=== PATIENT | male | born 1955 | race Caucasian/White ===

== ENCOUNTER 2023-08-22 02:51 | Emergency (ER) | payer MEDICARE ==
[~2023-08-22] VITALS: Ht 180.3 cm; Wt 81.7 kg
[~2023-08-22 02:51] MED LIST: INSULANI; LEVO750 PO; TAMS.4ER PO
[2023-08-22 02:56] VITALS: BP 157/77
== END 2023-08-22 04:00 | disposition home or self-care (01) ==
LOC: ER 02:51
DX: S96.912A Strain of unspecified muscle and tendon at ankle and foot level, left foot, initial encounter (principal); S96.911A Strain of unspecified muscle and tendon at ankle and foot level, right foot, initial encounter; X58.XXXA Exposure to other specified factors, initial encounter; Z88.0 Allergy status to penicillin; Z88.1 Allergy status to other antibiotic agents; E11.9 Type 2 diabetes mellitus without complications
CPT/HCPCS: 99282

== ENCOUNTER 2023-08-24 00:52 | Emergency (ER) | payer MEDICARE ==
[~2023-08-24] VITALS: Ht 177.8 cm; Wt 88.9 kg
[2023-08-24 01:08] VITALS: BP 146/78
== END 2023-08-24 01:48 | disposition home or self-care (01) ==
LOC: ER 00:52
DX: M79.671 Pain in right foot (principal); E11.9 Type 2 diabetes mellitus without complications; Z88.1 Allergy status to other antibiotic agents; Z88.0 Allergy status to penicillin
CPT/HCPCS: 82947; 99284

== ENCOUNTER 2024-02-17 16:42 | Observation (INO) | payer MEDICARE ==
[~2024-02-17] VITALS: Ht 177.8 cm; Wt 79.4 kg
[2024-02-17 18:21] LABS: BASOPHILS ABSOLUTE AUTO 0.03 K/mm3 (0.00-0.23); BASOPHILS PERCENT AUTO 1 % (0-2); EOSINOPHILS ABSOLUTE AUTO 0.06 K/mm3 (0.00-0.68); EOSINOPHILS PERCENT AUTO 1 % (0-6); Hematocrit 41.1 % (37.0-53.0); Hemoglobin 14.6 g/dL (13.5-17.5); IMMATURE GRAN ABSOLUTE AUTO 0.01 K/mm3 (0.00-0.10); IMMATURE GRAN PERCENT AUTO 0 % (0-1); LYMPHOCYTES ABSOLUTE AUTO 1.39 K/mm3 (0.84-5.20); LYMPHOCYTES PERCENT AUTO 25 % (21-46); MONOCYTES PERCENT AUTO 9 % (4-13); Mean Corpuscular HGB Conc 35.5 g/dL (31.5-36.5); Mean Corpuscular Volume 90 fL (80-100); NEUTROPHILS ABSOLUTE AUTO 3.62 K/mm3 (1.96-9.15); NEUTROPHILS PERCENT AUTO 65 % (41-73); Platelet Count 227 K/mm3 (150-400); RDW Coefficient Variation 11.8 % (11.7-14.2); RDW Standard Deviation 38.6 fL (35.1-46.3); Red Blood Cell Count 4.56 M/mm3 (4.30-5.90); White Blood Cell Count 5.61 K/mm3 (4.00-11.30)
[2024-02-17 18:48] LABS: Albumin, Blood 3.6 g/dL (3.4-5.0); Albumin/Globulin Ratio 1.1 (0.8-1.8); Bilirubin, Total 1.9 mg/dL (0.1-1.0); Calcium, Blood 8.5 mg/dL (8.5-10.1); Globulin, Blood 3.3 g/dL (2.2-4.0); Total Protein, Blood 6.9 g/dL (6.4-8.2)
[2024-02-17 21:26] LABS: Source, Urine Clean Catch
[2024-02-17 21:31] LABS: Appearance, Urine Clear (Clear); Bilirubin, Urine Neg (Neg); Blood, Urine Neg (Neg); Color, Urine Yellow (P-Yellow); Glucose Qualitative, Urine Neg (Neg); Ketones, Urine Neg (Neg); Leukocyte Esterase, Urine Neg (Neg); Nitrite, Urine Neg (Neg); Protein, Urine Neg (Neg); Specific Gravity, Urine 1.025 (1.003-1.022); Urobilinogen, Urine NORM (Normal)
[2024-02-18] MEDS ORDERED: TAMSULOSIN HCL0.4 M1 PO (00:28)
[2024-02-18 00:36] LABS: U Amphetamine Screen Not Detected; U Barbituate Screen Not Detected; U Benzodiazapine Screen Not Detected; U Buprenorphine Screen Not Detected; U Cannabinoids Screen Not Detected; U Cocaine Screen Not Detected; U Methadone Screen Not Detected; U Methamphetamine Screen Not Detected; U Opiates Screen Not Detected; U Oxycodone Screen Not Detected; U Phencyclidine Screen Not Detected
[2024-02-18] MEDS ORDERED: TraZODone HCl 50 MG Tab PO ONE (13:25)
[2024-02-18] MEDS ORDERED: Tamsulosin HCl 0.4 MG Cap PO ONE (15:05)
[2024-02-18 16:19] VITALS: BP 128/81
[2024-02-18] MEDS ORDERED: TraZODone HCl 50 MG Tab PO SCH (21:00)
== END 2024-02-18 15:54 | disposition other institution (70) ==
LOC: ER 16:42 → EOR 16:43
PROVIDERS: Physician Assistant; ADMIT Emergency Medicine
DX: F33.2 Major depressive disorder, recurrent severe without psychotic features (principal); R45.851 Suicidal ideations; K59.00 Constipation, unspecified; E11.9 Type 2 diabetes mellitus without complications; N40.0 Benign prostatic hyperplasia without lower urinary tract symptoms; Z88.0 Allergy status to penicillin; Z88.1 Allergy status to other antibiotic agents
CPT/HCPCS: 80053; 81003; 82947; 85025; 93005; 93010; 99285-25; A9270; G0378

== ENCOUNTER 2024-02-18 15:29 | Inpatient (IN) | payer MEDICARE ==
[~2024-02-18 15:29] MED LIST changes: +TAMSULOSIN HCL0.4 M1 PO
[2024-02-18] MEDS ORDERED: Ondansetron 4 MG SoluTab MM PRN (15:55)
[2024-02-18] MEDS ORDERED: HydrOXYzine Pamoate 50 MG Cap PO PRN (15:55)
[2024-02-18] MEDS ORDERED: LORazepam 2 MG Tab PO PRN (15:55)
[2024-02-18] MEDS ORDERED: Polyethylene Glycol 3350 17 gm PO PRN (15:55)
[2024-02-18] MEDS ORDERED: TraZODone HCl 50 MG Tab PO PRN (15:55)
[2024-02-18] MEDS ORDERED: OLANZapine ODT 10 MG Tab MM PRN (15:55)
[2024-02-18] MEDS ORDERED: Ibuprofen 600 MG Tab PO PRN (15:55)
[2024-02-18] MEDS ORDERED: Calcium Carbonate 500 MG Tab Chew PO PRN (16:00)
[2024-02-18] MEDS ORDERED: Melatonin 3 MG Tab PO PRN (16:00)
[2024-02-18] MEDS ORDERED: DiphenhydrAMINE HCl 50 MG/ML 1ML Vial IV PRN (16:00)
[2024-02-18] MEDS ORDERED: Aluminum Hydroxide 320MG/5ML 473 ML PO PRN (16:00)
[2024-02-18] MEDS ORDERED: Acetaminophen 325 MG TABLET PO PRN (16:00)
[2024-02-18] MEDS ORDERED: FLU VACC TS2024-25(6MOS UP)/PF 45 MCG/0.5 ML SYRINGE IM SCH (16:00)
[2024-02-18] MEDS ORDERED: DiphenhydrAMINE HCl 50 MG Cap PO PRN (16:00)
--- NOTE | 2024-02-18 16:40 | NUR ---
PATIENT BELONGINGS STORED
[2024-02-18 21:14] VITALS: BP 136/75
--- NOTE | 2024-02-19 04:09 | NUR ---
SHIFT SUMMARY PT WAS ADMITTED TO [facility] . HE IS PLEASANT, ALERT & ORIENTED AND COOPERATIVE WITH CARE. PT HAS DENIED ANY SI, HI OR HALLUCINATIONS. HE HAD EVENING SNACK AND THEN WATCHED TV FOR A SHORT AMOUNT OF TIME. PT HAD NO SCHEDULED MEDICATIONS DURING MY SHIFT. HE WAS INFORMED OF PRN MEDICATIONS AVAILABLE BUT HAS NOT ASKED FOR ANY MEDICATIONS. PT WENT TO HIS ROOM AROUND 2114 LAST NIGHT AND HAS APPEARED TO BE SLEEPING COMFORTABLY THROUGHOUT THE NIGHT. Q15 MINUTE CHECKS TO CONTINUE PER UNIT PROTOCOL.
[2024-02-19 08:13] VITALS: BP 146/78
[2024-02-19] MEDS ORDERED: Multivitamins 1 Tab PO SCH (09:00)
[2024-02-19] MEDS ORDERED: Tamsulosin HCl 0.4 MG Cap PO SCH (09:00)
[2024-02-19] MEDS ORDERED: TraZODone HCl 50 MG Tab PO SCH ×2 (09:00→21:00)
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
[2024-02-19] MEDS ORDERED: TraZODone HCl 100 MG Tab PO SCH (21:00)
[2024-02-19 23:31] VITALS: BP 152/75
--- NOTE | 2024-02-20 03:08 | NUR ---
SHIFT SUMMARY PT HAS BEEN ALERT AND ORIENTED, PLEASANT AND COOPERATIVE WITH CARE. HE DENIES ANY SI, HI, OR HALLUCINATIONS. DISCUSSION HAD WITH THE PATIENT AT THE BEGINNING OF MY SHIFT REGARDING THE PT FEELING FRUSTRATED WITH HIMSELF REGARDING "BAD DECISIONS". PT SPOKE ABOUT HIS CHURCH BELIEFS AND THAT HE WOULD LIKE TO HAVE A CLOSER RELATIONSHIP WITH GOD. PT STATED THAT HE FEELS READY TO GO HOME. PT HAD EVENING SNACK AND WATCHED TV IN GROUP ROOM WITH [employer]ERS. HE WAS COMPLIANT WITH HIS MEDICATIONS AND HAS APPEARED TO BE SLEEPING THROUGHOUT THE NIGHT, WITH RESPIRATIONS EVEN AND UNLABORED. Q15 MINUTE CHECKS TO CONTINUE PER UNIT PROTOCOL.
[2024-02-20] MEDS ORDERED: TRAZ100 PO (14:14)
== END 2024-02-20 15:37 | disposition home or self-care (01) | DRG 882 ==
LOC: BHU 15:29
PROVIDERS: ADMIT Psychiatry & Neurology Psychiatry
DX: F43.20 Adjustment disorder, unspecified (principal); R45.851 Suicidal ideations; F32.A Depression, unspecified; Z79.899 Other long term (current) drug therapy; Z98.890 Other specified postprocedural states; G47.00 Insomnia, unspecified; Z88.0 Allergy status to penicillin; Z88.1 Allergy status to other antibiotic agents; H93.13 Tinnitus, bilateral; N40.0 Benign prostatic hyperplasia without lower urinary tract symptoms; E11.9 Type 2 diabetes mellitus without complications; K76.0 Fatty (change of) liver, not elsewhere classified; Z87.19 Personal history of other diseases of the digestive system
CPT/HCPCS: A9270

== ENCOUNTER 2024-02-29 11:37 | Observation (INO) | payer OTHER ==
[~2024-02-29] VITALS: Ht 177.8 cm; Wt 79.4 kg
[~2024-02-29 11:37] MED LIST changes: +TRAZ100 PO
[2024-02-29] MEDS ORDERED: NS 1,000 ML IV SCH (12:05)
[2024-02-29 12:17] LABS: BASOPHILS ABSOLUTE AUTO 0.06 K/mm3 (0.00-0.23); BASOPHILS PERCENT AUTO 1 % (0-2); EOSINOPHILS ABSOLUTE AUTO 0.12 K/mm3 (0.00-0.68); EOSINOPHILS PERCENT AUTO 1 % (0-6); Hematocrit 43.4 % (37.0-53.0); Hemoglobin 14.5 g/dL (13.5-17.5); IMMATURE GRAN ABSOLUTE AUTO 0.04 K/mm3 (0.00-0.10); IMMATURE GRAN PERCENT AUTO 0 % (0-1); LYMPHOCYTES ABSOLUTE AUTO 3.88 K/mm3 (0.84-5.20); LYMPHOCYTES PERCENT AUTO 35 % (21-46); MONOCYTES ABSOLUTE AUTO 1.03 K/mm3 (0.16-1.47); MONOCYTES PERCENT AUTO 9 % (4-13); Mean Corpuscular HGB 31.7 pg (26.0-34.0); Mean Corpuscular HGB Conc 33.4 g/dL (31.5-36.5); Mean Corpuscular Volume 95 fL (80-100); Mean Platelet Volume 9.7 fL (9.1-12.4); NEUTROPHILS ABSOLUTE AUTO 6.04 K/mm3 (1.96-9.15); NEUTROPHILS PERCENT AUTO 54 % (41-73); Platelet Count 314 K/mm3 (150-400); RDW Coefficient Variation 11.5 % (11.7-14.2); RDW Standard Deviation 39.7 fL (35.1-46.3); Red Blood Cell Count 4.57 M/mm3 (4.30-5.90); White Blood Cell Count 11.17 K/mm3 (4.00-11.30)
[2024-02-29 12:34] LABS: Albumin, Blood 3.7 g/dL (3.4-5.0); Albumin/Globulin Ratio 1.2 (0.8-1.8); Bilirubin, Total 2.2 mg/dL (0.1-1.0); Bun/Creatinine Ratio 13.9 (12.0-20.0); Calcium, Blood 8.7 mg/dL (8.5-10.1); Creatinine, Blood 1.15 mg/dL (0.60-1.20); Globulin, Blood 3.1 g/dL (2.2-4.0); Potassium, Blood 3.7 mmol/L (3.5-5.5); Total Protein, Blood 6.8 g/dL (6.4-8.2)
[2024-02-29] MEDS ORDERED: Diltiazem HCl 5 MG / ML 5ML Vial IV ONE (12:35)
[2024-02-29] MEDS ORDERED: Ondansetron HCl 2 MG / ML 2ML Vial IV ONE (12:50)
[2024-02-29] MEDS ORDERED: FLU VACC TS2024-25(6MOS UP)/PF 45 MCG/0.5 ML SYRINGE IM PRN (15:15)
[2024-02-29 15:25] LABS: Source, Urine Clean Catch
[2024-02-29 15:31] LABS: Appearance, Urine Clear (Clear); Bilirubin, Urine Neg (Neg); Blood, Urine 1+ (Neg); Color, Urine Yellow (P-Yellow); Glucose Qualitative, Urine Neg (Neg); Ketones, Urine 1+ (Neg); Leukocyte Esterase, Urine Neg (Neg); Nitrite, Urine Neg (Neg); Protein, Urine 1+ (Neg); Specific Gravity, Urine 1.025 (1.003-1.022); Urobilinogen, Urine NORM (Normal)
[2024-02-29] MEDS ORDERED: LevETIRAcetam 500 MG Tab PO ONE (15:35)
[2024-02-29 15:38] LABS: Bacteria Rare /hpf; Squamous Epithelial Cells Rare /hpf (Few); White Blood Cells, Urine 0-2 /hpf (0-5)
[2024-02-29 15:41] LABS: Albumin, Blood 3.3 g/dL (3.4-5.0); Anion Gap 12 mmol/L (3-11); Blood Urea Nitrogen 14 mg/dL (8-24); Bun/Creatinine Ratio 15.2 (12.0-20.0); CO2, Blood 19 mmol/L (21-32); Calcium, Blood 7.8 mg/dL (8.5-10.1); Chloride, Blood 114 mmol/L (98-108); Creatinine, Blood 0.92 mg/dL (0.60-1.20); Glomerular Filtration Rate 92 (60-); Glucose, Blood 130 mg/dL (70-99); Phosphorus, Blood 1.5 mg/dL (2.5-4.9); Potassium, Blood 4.2 mmol/L (3.5-5.5); Sodium, Blood 141 mmol/L (136-145)
[2024-02-29 15:42] LABS: U Amphetamine Screen Not Detected; U Barbituate Screen Not Detected; U Benzodiazapine Screen Not Detected; U Buprenorphine Screen Not Detected; U Cannabinoids Screen Not Detected; U Cocaine Screen Not Detected; U Methadone Screen Not Detected; U Methamphetamine Screen Not Detected; U Opiates Screen Not Detected; U Oxycodone Screen Not Detected; U Phencyclidine Screen Not Detected
[2024-02-29 16:14] LABS: Bicarbonate Venous 20.7 mmol/L (24.0-30.0); PCO2 Venous 54.4 mmHg (38-42); pH Blood Venous 7.26 (7.34-7.37)
[2024-02-29] MEDS ORDERED: dilTIAZem HCL 30 MG TAB PO SCH ×2 (16:30→22:10)
[2024-02-29] MEDS ORDERED: Potassium Phos/Sodium Phos 250 MG PACK PO SCH (17:00)
[2024-02-29] MEDS ORDERED: Sodium Chloride 0.45% 1,000 ML IV ONE (17:10)
[2024-02-29 17:30] LABS: Beta-hydroxybutyrate 2.9 mg/dL (0.2-2.8); Salicylate <1.7 mg/dL (2.8-20.0)
[2024-02-29 20:55] VITALS: BP 116/72
[2024-02-29] MEDS ORDERED: Apixaban 5 MG Tab PO SCH (21:00)
[2024-02-29] MEDS ORDERED: LevETIRAcetam 500 MG Tab PO SCH (21:00)
--- NOTE | 2024-02-29 22:11 | NUR ---
CRITICAL LACTIC ACID CALLED TO PROVIDER (LEIGH ALMANZA): LACTIC ACID NOW 2.4. PT RECIEVING 1/2 NS AT 250 ML/HR. NO NEW ORDERS RECEIVED AND PROVIDER MADE AWARE OF PREVIOUS VALUES (2.8 THEN 2.0, NOW 2.4).
--- NOTE | 2024-03-01 01:40 | NUR ---
PT WAS UP TO RESTROOM W/SBA AND TELEMETRY NOTIFIED RN THAT PT WAS AFIB W/RVR, HR SUSTAINING 130'S-170'S. HE INTITIALLY DENIED S/S CARDIAC DISTRESS BUT THEN REPORTED DIZZINESS UPON AMBULATING BACK TO BED. UPON LYING DOWN, HR RECOVERED AND RETURNED TO LOW 100'S W/DIZZINESS RESOLVING SPONTANEOUSLY. RN REITTERATED IMPORTANCE TO CALL FOR ASSIST OOB D/T BECOMINGING SYMPTOMATIC W/TACHYCARDIA. PT WAS AGREEABLE AND EXPRESSED UNDERSTANDING. NOTIFIED OF EVENT W/NO NEW ORDERS RECEIVED BUT INSTRUCTIONS PROVIDED TO CONTINUE MONITORING.
[2024-03-01 03:06] VITALS: BP 97/58
[2024-03-01 05:53] LABS: BASOPHILS ABSOLUTE AUTO 0.03 K/mm3 (0.00-0.23); BASOPHILS PERCENT AUTO 0 % (0-2); EOSINOPHILS ABSOLUTE AUTO 0.06 K/mm3 (0.00-0.68); EOSINOPHILS PERCENT AUTO 1 % (0-6); Hematocrit 37.3 % (37.0-53.0); Hemoglobin 13.3 g/dL (13.5-17.5); IMMATURE GRAN ABSOLUTE AUTO 0.02 K/mm3 (0.00-0.10); IMMATURE GRAN PERCENT AUTO 0 % (0-1); LYMPHOCYTES ABSOLUTE AUTO 1.46 K/mm3 (0.84-5.20); LYMPHOCYTES PERCENT AUTO 20 % (21-46); MONOCYTES PERCENT AUTO 12 % (4-13); Mean Corpuscular HGB 31.6 pg (26.0-34.0); Mean Corpuscular HGB Conc 35.7 g/dL (31.5-36.5); Mean Platelet Volume 9.3 fL (9.1-12.4); NEUTROPHILS ABSOLUTE AUTO 4.95 K/mm3 (1.96-9.15); NEUTROPHILS PERCENT AUTO 67 % (41-73); Platelet Count 201 K/mm3 (150-400); RDW Coefficient Variation 11.7 % (11.7-14.2); RDW Standard Deviation 37.5 fL (35.1-46.3); Red Blood Cell Count 4.21 M/mm3 (4.30-5.90); White Blood Cell Count 7.42 K/mm3 (4.00-11.30)
[2024-03-01 06:18] LABS: Mean Corpuscular Volume 89 fL (80-100)
[2024-03-01 06:24] LABS: International Normalized Ratio 1.03
[2024-03-01 06:32] LABS: Magnesium, Blood 2.4 mg/dL (1.6-2.4)
[2024-03-01 06:34] LABS: Albumin, Blood 3.1 g/dL (3.4-5.0); Albumin/Globulin Ratio 1.1 (0.8-1.8); Bilirubin, Total 1.7 mg/dL (0.1-1.0); Bun/Creatinine Ratio 9.1 (12.0-20.0); Calcium, Blood 8.3 mg/dL (8.5-10.1); Creatinine, Blood 1.1 mg/dL (0.60-1.20); Globulin, Blood 2.8 g/dL (2.2-4.0); Potassium, Blood 3.8 mmol/L (3.5-5.5); Total Protein, Blood 5.9 g/dL (6.4-8.2)
[2024-03-01 06:38] LABS: Phosphorus, Blood 4.5 mg/dL (2.5-4.9)
[2024-03-01 08:03] VITALS: BP 154/127
[2024-03-01] MEDS ORDERED: Tamsulosin HCl 0.4 MG Cap PO SCH (09:00)
[2024-03-01] MEDS ORDERED: Enoxaparin 40 MG/0.4 ML SYR SC SCH (09:00)
--- NOTE | 2024-03-01 09:05 | NUR ---
LEFT VOICEMAIL WITH PHYSICIAN RE PT HEART RATE BEING ELEVATED WITH HIGHEST BEING 170S AND STAY WITHIN THE 120S-150S. AND LAST NIGHT HR NOTED TO BE IN 90S. PT STATED HE HAS DIZZINESS BUT DENIES SOB OR CHEST PAIN. AWAITING PHYSICAIN TO CALL BACK.
[2024-03-01 09:11] VITALS: BP 104/69
[2024-03-01 13:00] VITALS: BP 134/83
[2024-03-01 16:35] VITALS: BP 95/69
--- NOTE | 2024-03-01 17:25 | NUR ---
SHIFT SUMMARY PT CONT LEVEL OF CARE. PT REMAINS A&OX4 AND SBA WITH AMB D/T SEIZURE PRECAUTION. PT CALLS APPROPRITE AND MAKES NEEDS KNOWN. PT NOTED TO BE IN AFIB RVR THIS MORNING WITH HR AVERAGING 130S-150S. PT VOICED C/O DIZZINESS AND LIGHTHEADEDNESS BUT DENIES CHEST PAIN AND SOB. PHYSICIAN NOTIFED AND EKG OBTAINED. [employer] DEVELOPER CONSULTED AND ECHO ORDERED D/T HR CONTROLLED IN THE 90S AWAITING RESULTS. NO S/S OF SEIZURES NOTED THIS SHIFT.
[2024-03-01 20:15] VITALS: BP 101/64
[2024-03-02 03:06] VITALS: BP 103/57
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
[2024-03-02 06:15] LABS: BASOPHILS ABSOLUTE AUTO 0.03 K/mm3 (0.00-0.23); BASOPHILS PERCENT AUTO 1 % (0-2); EOSINOPHILS ABSOLUTE AUTO 0.08 K/mm3 (0.00-0.68); EOSINOPHILS PERCENT AUTO 2 % (0-6); Hematocrit 37.1 % (37.0-53.0); Hemoglobin 13.2 g/dL (13.5-17.5); IMMATURE GRAN ABSOLUTE AUTO 0.01 K/mm3 (0.00-0.10); IMMATURE GRAN PERCENT AUTO 0 % (0-1); LYMPHOCYTES ABSOLUTE AUTO 1.63 K/mm3 (0.84-5.20); LYMPHOCYTES PERCENT AUTO 36 % (21-46); MONOCYTES ABSOLUTE AUTO 0.48 K/mm3 (0.16-1.47); MONOCYTES PERCENT AUTO 11 % (4-13); Mean Corpuscular HGB 31.9 pg (26.0-34.0); Mean Corpuscular HGB Conc 35.6 g/dL (31.5-36.5); Mean Corpuscular Volume 90 fL (80-100); Mean Platelet Volume 9.7 fL (9.1-12.4); NEUTROPHILS ABSOLUTE AUTO 2.36 K/mm3 (1.96-9.15); NEUTROPHILS PERCENT AUTO 51 % (41-73); Platelet Count 187 K/mm3 (150-400); RDW Coefficient Variation 11.7 % (11.7-14.2); RDW Standard Deviation 38.1 fL (35.1-46.3); Red Blood Cell Count 4.14 M/mm3 (4.30-5.90); White Blood Cell Count 4.59 K/mm3 (4.00-11.30)
[2024-03-02 06:46] LABS: Albumin/Globulin Ratio 1.1 (0.8-1.8); Bilirubin, Total 1.5 mg/dL (0.1-1.0); Bun/Creatinine Ratio 10.7 (12.0-20.0); Calcium, Blood 8.1 mg/dL (8.5-10.1); Creatinine, Blood 1.12 mg/dL (0.60-1.20); Globulin, Blood 2.7 g/dL (2.2-4.0); Magnesium, Blood 2.3 mg/dL (1.6-2.4); Potassium, Blood 3.6 mmol/L (3.5-5.5); Total Protein, Blood 5.7 g/dL (6.4-8.2)
[2024-03-02 08:10] VITALS: BP 98/70
[2024-03-02] MEDS ORDERED: Diltiazem HCl 180 MG Cap.CD PO SCH (09:00)
[2024-03-02 15:20] VITALS: BP 104/66
--- NOTE | 2024-03-02 17:11 | NUR ---
SHIFT SUMMARY PT AOX4, INDEPENDENT IN THE ROOM. NO ACUTE CHANGES THIS SHIFT. NEW MEDICATION ADMINISTERED PER THE EMAR FOR PT'S AFIB, PT HAS HAD NO COMPLAINTS. PT PROVIDED PRUNE JUICE FOR LACK OF BM FOR TWO DAYS, PT HAS NOT REPORTED A BM. NO COMPLAINTS OF CHEST PAIN OR DIZZINESS. PT DOES NOT CALL BUT MAKES NEEDS KNOWN DURING HOURLY ROUNDING. HE REMAINS IN PRECAUTIONS FOR LICE HOWEVER NO LICE HAS BEEN OBSERVED BY STAFF THIS SHIFT. PT REPOSITIONS SELF IN BED, NO EVENTS PER TELE. CALL LIGHT WITHIN REACH, BED LOCKED AND IN THE LOWEST POSITION. WILL REPORT TO ONCOMING NURSE.
[2024-03-02 20:50] VITALS: BP 111/70
--- NOTE | 2024-03-03 04:17 | NUR ---
SHIFT SUMMARY. PATIENT IS A&OX4. PATIENT UP INDEPENDENTLY IN ROOM. PATIENT DOES NOT CALL BUT WILL MAKE NEEDS KNOWN WITH ROUNDS. PATIENT IN ISOLATION FOR LICE-NO LICE OBSERVED BY STAFF THIS SHIFT. NO REPORTS OF BM THIS SHIFT. PATIENT RESTING WELL T/O NIGHT WITH RESPIRATIONS EQUAL AND UNLABORED. BED IS LOCKED IN THE LOWEST POSITION WITH CALL LIGHT IN REACH. CARE IS ONGOING.
[2024-03-03 04:21] VITALS: BP 109/73
--- NOTE | 2024-03-03 05:27 | NUR ---
PATIENT REFUSED MORNING LABS. PATIENT STATES "I AM TIRED OF GIVING BLOOD!" THIS RN EDUCATED PATIENT ON IMPORTANCE OF LABS-PATIENT STILL REFUSED.
[2024-03-03 07:24] VITALS: BP 104/64
--- NOTE | 2024-03-03 09:44 | NUR ---
NOTE: NOTIFIED BY [employer], CLAUDIA, OF THE PT SUSTAINING IN THE 130'S FROM [id number]. THIS NURSE ADMINISTERED HIS AM MEDICATIONS AROUND 8:40. PER LAUNDRY TUB MAKER, PT IS NOW SUSTAINING IN THE 110'S. DR. DAVIS NOTIFIED AND NO NEW ORDERS AT THIS TIME.
[2024-03-03] MEDS ORDERED: ELIQUIS5 M2 PO (13:44)
[2024-03-03] MEDS ORDERED: DILT180 PO (13:44)
[2024-03-03] MEDS ORDERED: LEVE500 PO (13:45)
--- NOTE | 2024-03-03 15:26 | NUR ---
DISCHARGE NOTE NO ACUTE CHANGES PRIOR TO DISCHARGE. PT DISCHARGED TO HOME, PICKED UP BY HIS SISTER. IV REMOVED, TELE RETURNED. MEDICATIONS FAXED TO THE PHARMACY OF HIS CHOICE. DISCHARGE INFORMATION AND EDUCATIONS REVIEWED AND PROVIDED TO THE PT. PT TAKEN TO VEHICLE BY WC. SHOES PROVIDED BEFORE DISCHARGE.
== END 2024-03-03 15:25 | disposition home or self-care (01) ==
LOC: ER 11:37 → ERHOLD 11:38 → MEDS 11:38
PROVIDERS: Emergency Medicine; Family Medicine; ADMIT Family Medicine
DX: G40.409 Other generalized epilepsy and epileptic syndromes, not intractable, without status epilepticus (principal); I48.91 Unspecified atrial fibrillation; E11.65 Type 2 diabetes mellitus with hyperglycemia; N40.0 Benign prostatic hyperplasia without lower urinary tract symptoms; F31.9 Bipolar disorder, unspecified; Z79.899 Other long term (current) drug therapy; Z87.891 Personal history of nicotine dependence; Z88.0 Allergy status to penicillin; Z88.1 Allergy status to other antibiotic agents
CPT/HCPCS: 36415; 70450; 71045; 80053; 80069; 81001; 82010; 82330; 82803; 82947; 83036; 83605; 83735; 84100; 84443; 84484; 85025; 85610; 93005; 93010; 93306; 96374; 96375; 99285-25; A9270; G0378; G0480; J2405; J7030

== ENCOUNTER 2024-11-21 15:27 | Emergency (ER) | payer OTHER ==
[~2024-11-21] VITALS: Ht 182.9 cm; Wt 63.5 kg
[~2024-11-21 15:27] MED LIST changes: +DILT180 PO; +ELIQUIS5 M2 PO; +LEVE500 PO
[2024-11-21] MEDS ORDERED: Ondansetron HCl 2 MG / ML 2ML Vial IV ONE (15:40)
[2024-11-21 16:00] LABS: BASOPHILS ABSOLUTE AUTO 0.05 K/mm3 (0.00-0.23); BASOPHILS PERCENT AUTO 1 % (0-2); EOSINOPHILS ABSOLUTE AUTO 0.04 K/mm3 (0.00-0.68); EOSINOPHILS PERCENT AUTO 1 % (0-6); Hematocrit 43.3 % (37.0-53.0); Hemoglobin 15.2 g/dL (13.5-17.5); IMMATURE GRAN ABSOLUTE AUTO 0.02 K/mm3 (0.00-0.10); IMMATURE GRAN PERCENT AUTO 0 % (0-1); LYMPHOCYTES ABSOLUTE AUTO 2.92 K/mm3 (0.84-5.20); LYMPHOCYTES PERCENT AUTO 33 % (21-46); MONOCYTES ABSOLUTE AUTO 0.82 K/mm3 (0.16-1.47); MONOCYTES PERCENT AUTO 9 % (4-13); Mean Corpuscular HGB Conc 35.1 g/dL (31.5-36.5); Mean Corpuscular Volume 90 fL (80-100); NEUTROPHILS ABSOLUTE AUTO 4.93 K/mm3 (1.96-9.15); NEUTROPHILS PERCENT AUTO 56 % (41-73); NRBC ABSOLUTE 0.00 K/mm3 (0.00-0.02); NRBC Auto 0.0 /100 WBC (0.0-0.2); Platelet Count 270 K/mm3 (150-400); RDW Coefficient Variation 11.7 % (11.7-14.2); RDW Standard Deviation 38.9 fL (35.1-46.3)
[2024-11-21 16:30] LABS: Alanine Aminotransfer (ALT/SGP 24.0 U/L (12-78); Albumin, Blood 4.3 g/dL (3.4-5.0); Albumin/Globulin Ratio 1.4 (0.8-1.8); Anion Gap 21.0 mmol/L (3-11); Aspartate Aminotrans (AST/SGOT 13.0 U/L (12-37); Bilirubin, Total 2.0 mg/dL (0.1-1.0); Blood Urea Nitrogen 15.0 mg/dL (8-24); CO2, Blood 14.0 mmol/L (21-32); Calcium, Blood 8.9 mg/dL (8.5-10.1); Chloride, Blood 107.0 mmol/L (98-108); Creatinine, Blood 0.9 mg/dL (0.60-1.20); Globulin, Blood 3.1 g/dL (2.2-4.0); Glucose, Blood 144.0 mg/dL (70-99); Potassium, Blood 3.6 mmol/L (3.5-5.5); Sodium, Blood 138.0 mmol/L (136-145); Total Protein, Blood 7.4 g/dL (6.4-8.2)
[2024-11-21 17:09] VITALS: BP 139/74
[2024-11-22 20:19] LABS: KEPPRA (LEVETIRACETAM) <2.0 ug/mL (10.0-40.0)
== END 2024-11-21 17:46 | disposition home or self-care (01) ==
LOC: ER 15:27
PROVIDERS: Physician Assistant
DX: G40.909 Epilepsy, unspecified, not intractable, without status epilepticus (principal); E11.9 Type 2 diabetes mellitus without complications; Z88.0 Allergy status to penicillin; Z88.1 Allergy status to other antibiotic agents; Z79.01 Long term (current) use of anticoagulants; Z79.899 Other long term (current) drug therapy
CPT/HCPCS: 70450; 80053; 85025; 96365; 96375; 99285-25; J1953; J2405